=== PATIENT | female | born 1970 | race Caucasian/White ===

== ENCOUNTER 2020-10-11 14:57 | Outpatient (CLI) | payer OTHER, SELFPAY ==
[2020-10-11 16:25] LABS: Thyroid Stimulating Hormone 0.341 uIU/mL (0.465-4.680)
== END 2020-10-11 14:58 | disposition home or self-care (01) ==
LOC: ANHLAB 15:06
DX: E03.8 Other specified hypothyroidism (principal)
CPT/HCPCS: 36415; 84439; 84443